=== PATIENT | female | born 1980 | race Caucasian/White ===

== ENCOUNTER 2017-08-16 15:14 | Emergency (ER) | payer BC ==
[~2017-08-16] VITALS: Ht 152.4 cm; Wt 54.0 kg
[~2017-08-16 15:14] MED LIST: MXRAIN INH; TOPI25TA99 PO
[2017-08-16 15:17] VITALS: TEMP 36.7; Ht 152.4 cm; Wt 54.0 kg
[2017-08-16] MEDS ORDERED: ACETAMINOPHEN 500 MG TAB PO STA (15:37)
[2017-08-16] MEDS ORDERED: ONDANSETRON 4MG OD TAB PO ONE (15:45)
--- NOTE | 2017-08-16 15:59 | DIAGNOSTIC IMAGING REPORT ---
HEAD WITHOUT CONTRAST (CT) CT DOSE: 537.48 mGy.cm HISTORY: Trauma. No status change. head injury, dizzy, nauseous TECHNIQUE: Multiaxial CT images of the head were performed without the use of intravenous contrast. A dose lowering technique was utilized adhering to the principles of ALARA. Comparison: None. Findings: The paranasal sinuses and mastoid air cells are clear. The calvarium and skull base are intact. The ventricles and sulci are within normal limits. There is no mass, hematoma, midline shift, or acute infarct. Impression: No acute intracranial abnormality. The above report was generated using voice recognition software. It may contain grammatical, syntax or spelling errors. Electronically signed by: Aric Wolf M.D. 08/16/2017 3:58 PM Dictated Date/Time: 08/16/2017 3:57 PM
--- NOTE | 2017-08-16 16:36 | EMERGENCY ROOM VISIT NOTE ---
History First contact with patient: 15:20 Chief Complaint: HEAD INJURY (MINOR) Stated Complaint: HAMMER FELL ON HEAD, BLEEDING & PAIN History of Present Illness The patient is a 36 year old female who presents to the Emergency Room with complaints of a closed head injury. She reports that she moved a ladder and a hammer fell off the top of the ladder and fell onto the top of her head. She had some bleeding from the area and then began to feel dizzy, nauseous and a pressure in her head. She rates her discomfort a 9/10. She denies any back pain. She did not lose consciousness. She has been nauseous but has not vomited. She does not take any blood thinners. Review of Systems A complete 10 point review of systems was reviewed with the patient with pertinent positives and negatives as per history of present illness. All else were negative. Past Medical/Surgical History Medical Problems: (1) History of kidney stones Surgical Problems: (1) No significant past surgical history Social History Smoking Status: Never Smoker Alcohol Use: occasionally Housing Status: lives with family Occupation Status: employed Current/Historical Medications Scheduled Topiramate (Topamax ), 75 MG PO BID Physical Exam Vital Signs Date Time Temp Pulse Resp B/P (MAP) Pulse Ox O2 Delivery O2 Flow Rate FiO2 08/16/17 16:56 80 14 116/78 100 08/16/17 15:17 36.7 78 20 117/81 99 Room Air Physical Exam VITALS: Vitals are noted on the nurse's note and reviewed by myself. Vital signs stable. GENERAL: This is a 36-year-old female, in no acute distress, nondiaphoretic, well-developed well-nourished. SKIN: There is a small 1 cm non-gaping laceration to the top of the scalp. HEAD: Normocephalic atraumatic. EARS: External auditory canals clear, tympanic membranes pearly cho without erythema or effusion bilaterally. No hemotympanum. EYES: Pupils equal round and reactive to light and accommodation. Extraocular movements intact. MOUTH: Mucous membranes moist. Tonsils are not enlarged. Pharynx without erythema or exudate. NECK: Supple without nuchal rigidity. Cervical spine is nontender. HEART: Regular rate and rhythm without murmurs gallops or rubs. LUNGS: Clear to auscultation bilaterally without wheezes, rales or rhonchi. MUSCULOSKELETAL: Strength 5/5 throughout. NEURO: Patient was alert and oriented to person place and time. No focal neurological deficits. Medical Decision & Procedures ER Provider Diagnostic Interpretation: HEAD WITHOUT CONTRAST (CT) CT DOSE: 537.48 mGy.cm HISTORY: Trauma. No status change. head injury, dizzy, nauseous TECHNIQUE: Multiaxial CT images of the head were performed without the use of intravenous contrast. A dose lowering technique was utilized adhering to the principles of ALARA. Comparison: None. Findings: The paranasal sinuses and mastoid air cells are clear. The calvarium and skull base are intact. The ventricles and sulci are within normal limits. There is no mass, hematoma, midline shift, or acute infarct. Impression: No acute intracranial abnormality. Medications Administered Medications (Trade) Dose Ordered Sig/Fernando Route Start Time Stop Time Status Last Admin Dose Admin Ondansetron HCl (Zofran Odt) 4 mg ONE ONCE PO 08/16/17 15:45 08/16/17 15:46 DC 08/16/17 15:57 4 MG Acetaminophen (Tylenol Tab) 1,000 mg NOW STAT PO 08/16/17 15:37 08/16/17 15:40 DC 08/16/17 15:58 1,000 MG Acetaminophen/ Hydrocodone Bitart (Tyronza 5/325mg Home Pack) 1 homepack UD ONCE PO 08/16/17 16:45 08/16/17 16:46 DC 08/16/17 16:50 1 HOMEPACK Medical Decision Differential diagnosis includes epidural hematoma, subdural hematoma, subarachnoid bleed, concussion, among others. The patient was evaluated as above. She sustained a small scalp laceration which is non-gaping and not bleeding. This will not require repair. A CT of the head was performed and showed no acute intracranial findings. Head injury precautions and wound care instructions were discussed with the patient. She was advised to follow-up with her primary care provider as needed for further evaluation. She verbalized understanding of my assessment and treatment plan and was discharged home in good condition. Medication Reconcilliation Current Medication List: was personally reviewed by me Blood Pressure Screening Patient's blood pressure: Normal blood pressure Impression Primary Impression: Closed head injury Departure Information Dispostion Home / Self-Care Condition GOOD Referrals Sarath Christopher M.D. (PCP) Patient Instructions [facility] Additional Instructions You have been treated in the Emergency Department for a Closed Head Injury. CT Scan of your head/brain demonstrated no acute bleeding or other abnormalities. This does not completely rule out the risk for future damage to the brain. You have been given Tyronza to be used for pain control. This is a narcotic medication. You cannot drive or consume alcohol while on this medicine. This medicine should only be used for pain that cannot be controlled with over-the- counter pain medicines. For pain control, you can use the following [id number] medicines (if >12 yo): - Regular strength (325mg/tab) Tylenol (acetaminophen) 2 tabs every 4-6 hours as needed. Do not exceed 12 tablets in a 24 hour period. Avoid taking more than 4 grams (4000 mg) of Tylenol per day. This includes any other sources of acetaminophen you may take on a regular basis. - Regular strength (200 mg/tab) Advil (ibuprofen) 1-2 tabs every 4-6 hours as needed. Do not exceed a dose of 3200 mg per day. You should relax in a quiet, dark place for the rest of the day. Avoid any possible triggers including: cigarette smoke, caffeine, nicotine, chocolate, wine, beer, loud noises or music, or bright lights. You should schedule a follow-up appointment in 2-3 days with your Primary Care Provider or established Neurologist for further evaluation and treatment of your Headache. Return to the Emergency Department if your current symptoms worsen despite treatment course outlined above, or if you develop any of the following symptoms : intractable pain despite aforementioned treatment course, visual disturbances , loss of vision, unilateral weakness or facial drooping, slurring of speech, loss of coordination, or loss of consciousness. Problem Qualifiers Primary Impression: Closed head injury Encounter type: initial encounter Qualified Codes: S09.90XA - Unspecified injury of head, initial encounter
[2017-08-16] MEDS ORDERED: NORCO 5/325MG HOME PACK PO ONE (16:45)
[2017-08-16 16:56] VITALS: BP 116/78; PULSE 80; O2SAT 100
== END 2017-08-16 17:00 | disposition home or self-care (01) ==
LOC: C.EDB 15:15 → C.EDD 17:00
DX: S01.01XA Laceration without foreign body of scalp, initial encounter (principal); W20.8XXA Other cause of strike by thrown, projected or falling object, initial encounter; Z87.442 Personal history of urinary calculi; Z79.899 Other long term (current) drug therapy